=== PATIENT | male | born 1965 | race Caucasian/White ===

== ENCOUNTER 2020-06-29 13:46 | Emergency (ER) | payer OTHER ==
[~2020-06-29 13:46] MED LIST: LEVAQUIN500 MG PO; NORCO 5-325 TA1 EACH PO; ULTRACET TABLE1 EACH PO
[2020-06-29 14:43] LABS: HEMOGLOBIN 15.9 gm/dl (14.0-17.5); RED BLOOD COUNT 5.18 M/UL (4.20-5.50); WHITE BLOOD COUNT 4.4 K/UL (4.5-11.0)
[2020-06-29] MEDS ORDERED: KEFLEX CAP 500500 MG PO (19:45)
[2020-06-29] MEDS ORDERED: BACTRIM DS TAB1 EACH PO (19:45)
== END 2020-06-29 19:55 | disposition home or self-care (01) ==
LOC: ER1 13:46
PROVIDERS: Physician Assistant Medical
DX: G89.18 Other acute postprocedural pain (principal); R10.33 Periumbilical pain; Z98.890 Other specified postprocedural states
CPT/HCPCS: 80053; 81001; 83605; 85025; 87040; 87070; 87077; 87186; 87205; 96374; 96375; 96376; 99284; J2270; J2405

== ENCOUNTER 2020-08-28 19:05 | Emergency (ER) | payer OTHER ==
[~2020-08-28 19:05] MED LIST changes: +BACTRIM DS TAB1 EACH PO; +KEFLEX CAP 500500 MG PO
[2020-08-28 23:42] LABS: HEMOGLOBIN 16.7 gm/dl (14.0-17.5); RED BLOOD COUNT 5.32 M/UL (4.20-5.50); WHITE BLOOD COUNT 6.5 K/UL (4.5-11.0)
[2020-08-29] MEDS ORDERED: ZOFRAN ODT 4 MG4 MG PO (03:00)
[2020-08-29] MEDS ORDERED: BENTYL 20MG TAB20 MG PO (03:00)
== END 2020-08-29 03:12 | disposition home or self-care (01) ==
LOC: ER1 19:05
PROVIDERS: Emergency Medicine
DX: R10.32 Left lower quadrant pain (principal); L76.34 Postprocedural seroma of skin and subcutaneous tissue following other procedure; N18.9 Chronic kidney disease, unspecified
CPT/HCPCS: 80053; 81001; 83605; 83690; 83735; 85025; 96374; 96375; 99284; J2270; J2405

== ENCOUNTER 2021-02-02 15:15 | Emergency (ER) | payer BC ==
[~2021-02-02] VITALS: Ht 165.1 cm; Wt 90.7 kg
[~2021-02-02 15:15] MED LIST changes: +BENTYL 20MG TAB20 MG PO; +ZOFRAN ODT 4 MG4 MG PO
== END 2021-02-02 18:20 | disposition home or self-care (01) ==
LOC: ER1 15:15
DX: Z23 Encounter for immunization (principal); U07.1 COVID-19; I10 Essential (primary) hypertension
CPT/HCPCS: 99283; M0243

== ENCOUNTER 2021-02-09 03:11 | Emergency (ER) | payer BC ==
[~2021-02-09] VITALS: Ht 167.6 cm; Wt 90.7 kg
[2021-02-09 03:54] LABS: HEMOGLOBIN 16.1 gm/dl (14.0-17.5); RED BLOOD COUNT 5.24 M/UL (4.20-5.50); WHITE BLOOD COUNT 10.4 K/UL (4.5-11.0)
[2021-02-10 03:52] LABS: HEMOGLOBIN 15.4 gm/dl (14.0-17.5); RED BLOOD COUNT 5.03 M/UL (4.20-5.50); WHITE BLOOD COUNT 11.4 K/UL (4.5-11.0)
[2021-02-10] MEDS ORDERED: VOLTAREN EC 5050 MG PO (12:14)
[2021-02-10] MEDS ORDERED: GABAPENTIN400 MG PO (12:15)
[2021-02-10] MEDS ORDERED: LEVOTHYROXINE25 MCG PO (12:15)
[2021-02-10] MEDS ORDERED: FLOMAX 0.4 MG0.4 MG PO (12:16)
[2021-02-10] MEDS ORDERED: HYDROCODON-ACE1 EAC4 PO (16:45)
[2021-02-10] MEDS ORDERED: AUGMENTIN 875-1 EACH PO (16:45)
== END 2021-02-10 16:32 | disposition home or self-care (01) ==
LOC: ER1 03:11 → CDU 09:04 → ER1 02-10 16:32
PROVIDERS: Physician Assistant; Physician Assistant Medical
DX: L03.113 Cellulitis of right upper limb (principal); N17.9 Acute kidney failure, unspecified; K21.9 Gastro-esophageal reflux disease without esophagitis; N40.0 Benign prostatic hyperplasia without lower urinary tract symptoms; Z90.89 Acquired absence of other organs; Z90.49 Acquired absence of other specified parts of digestive tract; Z20.822 Contact with and (suspected) exposure to COVID-19
CPT/HCPCS: 73200; 80048; 80053; 82550; 82553; 83605; 83735; 83874; 84100; 84484; 85025; 85027; 85652; 86140; 87040; 96374; 96375; 96376; 99284; J1170; J1335; J2270; J2405; J2543; J3370; J7030; J7070; U0002

== ENCOUNTER 2021-10-14 18:31 | Emergency (ER) | payer BC ==
[~2021-10-14 18:31] MED LIST changes: +AUGMENTIN 875-1 EACH PO; +FLOMAX 0.4 MG0.4 MG PO; +GABAPENTIN400 MG PO; +HYDROCODON-ACE1 EAC4 PO; +LEVOTHYROXINE25 MCG PO; +VOLTAREN EC 5050 MG PO
[2021-10-14 19:31] LABS: HEMOGLOBIN 16.1 gm/dl (14.0-17.5); RED BLOOD COUNT 5.1 M/UL (4.20-5.50); WHITE BLOOD COUNT 9.6 K/UL (4.5-11.0)
== END 2021-10-15 01:00 | disposition home or self-care (01) ==
LOC: ER1 18:31
PROVIDERS: Emergency Medicine; Physician Assistant
DX: K43.9 Ventral hernia without obstruction or gangrene (principal); E87.5 Hyperkalemia; K63.89 Other specified diseases of intestine; I12.9 Hypertensive chronic kidney disease with stage 1 through stage 4 chronic kidney disease, or unspecified chronic kidney disease; N18.9 Chronic kidney disease, unspecified
CPT/HCPCS: 80048; 80053; 81001; 82550; 82553; 85025; 93005; 94644; 94760; 96374; 96375; 99284; J2270; J2405

== ENCOUNTER → 2022-01-01 | Outpatient (CLI) | payer BC ==
[~2022-01-01] MED LIST changes: -GABAPENTIN400 MG PO; +GABAPENTIN600 MG PO; +ONDANSETRON HCL4 MG PO
[2022-01-01 14:31] LABS: HEMOGLOBIN 15.7 gm/dl (14.0-17.5); RED BLOOD COUNT 5.14 M/UL (4.20-5.50); WHITE BLOOD COUNT 7.1 K/UL (4.5-11.0)
[2022-01-01 15:12] LABS: BUN/CREATININE RATIO 10 (0-10)
[2022-01-02 13:14] LABS: TESTOSTERONE, SERUM 611 ng/dL (264-916)
== END ==
LOC: LAB 14:02
PROVIDERS: Nurse Practitioner
DX: R53.83 Other fatigue (principal); D64.9 Anemia, unspecified; N18.6 End stage renal disease; E78.5 Hyperlipidemia, unspecified; R73.9 Hyperglycemia, unspecified; E29.1 Testicular hypofunction; N40.1 Benign prostatic hyperplasia with lower urinary tract symptoms
CPT/HCPCS: 36415; 80053; 80061; 83036; 83735; 84100; 84153; 84403; 84443; 85027

== ENCOUNTER → 2022-01-02 | Outpatient (CLI) | payer BC ==
[2022-01-03 08:13] LABS: HBSAG SCREEN Negative (Negative); HCV AB <0.1 (0.0-0.9); HEP A AB, IGM Negative (Negative); HEP B CORE AB, IGM Negative (Negative)
== END ==
LOC: RAD 14:32
PROVIDERS: Nurse Practitioner
DX: I42.9 Cardiomyopathy, unspecified (principal); R74.01 Elevation of levels of liver transaminase levels
CPT/HCPCS: 36415; 71046; 80074; 85610; 85730

== ENCOUNTER 2022-01-03 18:55 | Inpatient (IN) | payer BC ==
[~2022-01-03] VITALS: Ht 167.6 cm; Wt 92.1 kg
[~2022-01-03 18:55] MED LIST changes: -ONDANSETRON HCL4 MG PO
[2022-01-03 19:11] LABS: HEMOGLOBIN 16.1 gm/dl (14.0-17.5); RED BLOOD COUNT 5.21 M/UL (4.20-5.50)
[2022-01-03 19:18] LABS: WHITE BLOOD COUNT 10.9 K/UL (4.5-11.0)
[2022-01-04 07:24] LABS: RED BLOOD COUNT 4.76 M/UL (4.20-5.50); WHITE BLOOD COUNT 9.5 K/UL (4.5-11.0)
[2022-01-04] MEDS ORDERED: ONDANSETRON HCL4 MG PO (10:50)
[2022-01-05 04:06] LABS: HEMOGLOBIN 13.1 gm/dl (14.0-17.5); RED BLOOD COUNT 4.34 M/UL (4.20-5.50); WHITE BLOOD COUNT 8.7 K/UL (4.5-11.0)
--- NOTE | 2022-01-05 06:44 | NUR ---
0515: WHILE ASSISTING OTHER PT IN OTHER ROOM, THIS PT GOT OUT OF BED AND WENT TO THE BATHROOM STATING " I STINK AND NEED A SHOWER" PT ADVISED THAT THEY WERE STILL ON BEDREST PER MD ORDER AND NEEDED TO GO BACK TO BED. 0545: PT BACK TO BED, CHECKED PT R SIDE GROIN WHERE PREVIOUS SHEATH WAS, MORE SWELLING PRESENT WITH HARDNESS NOTED, BRUISING WORSENING, MD NOTIFIED (SEE NOTE)
[2022-01-06 01:15] LABS: HEMOGLOBIN 11.6 gm/dl (14.0-17.5); WHITE BLOOD COUNT 8.9 K/UL (4.5-11.0)
[2022-01-06 01:24] LABS: RED BLOOD COUNT 3.78 M/UL (4.20-5.50)
--- NOTE | 2022-01-06 20:12 | NUR ---
CALLED TO ROOM REQUESTING A"CONVERSATION" AT THIS TIME HE WAS INSISTENT TO GET OUT OF BED TO VOID DESPITE ADVICE TO REMAIN ON BEDREST. SHAKING UNCONTROLLABLY AND EXTREMELY ANXIOUS. ONCE UP HE WAS INSISTENT TO GO TO RESTROOM. ASSIST TO RESTROOM AND THEN SAT UP IN CHAIR. STATES HE WAS FEELING BETTER AT THAT POINT.
--- NOTE | 2022-01-06 20:38 | NUR ---
CALLED BACK TO ROOM . VERY UPSET. DEMANDING DR CHERRY TO BE CALLED. DR NAGY LOCK EXPERT. HE STATED HE THINKS MAYBE HE SHOULD BE TRANSFERRED TO [place] WHERE HE COULD RECEIVE BETTER QUALITY TREATMENT. ALL QUESTIONS AND CONCERNS ADDRESSED. DECLINED SPEAKING WITH DR NAGY AT THIS TIME. WILL CONTINUE TO ADDRESS ISSUES NEEDED.
[2022-01-07 04:56] LABS: HEMOGLOBIN 10.9 gm/dl (14.0-17.5); RED BLOOD COUNT 3.58 M/UL (4.20-5.50); WHITE BLOOD COUNT 7.4 K/UL (4.5-11.0)
[2022-01-08 04:17] LABS: RED BLOOD COUNT 3.69 M/UL (4.20-5.50); WHITE BLOOD COUNT 5.9 K/UL (4.5-11.0)
--- NOTE | 2022-01-08 17:41 | NUR ---
PT CALLED OUT STATES, " I CANNOT BREATHE I FEEL LIKE MY LUNGS ARE FILLED UP WITH FLUID AND IM SMOTHERING. " OXYGEN CHECKED PTS 02SAT IS 99% ON 2LNC. NOTIFIED DR MARTIN. ORDERS PLACED.
[2022-01-09 01:49] LABS: HEMOGLOBIN 10.7 gm/dl (14.0-17.5); RED BLOOD COUNT 3.58 M/UL (4.20-5.50); WHITE BLOOD COUNT 5.5 K/UL (4.5-11.0)
[2022-01-09] MEDS ORDERED: ASPIRIN EC81 MG PO (11:45)
[2022-01-09] MEDS ORDERED: ISOSORBIDE MONO60 MG PO (11:45)
[2022-01-09] MEDS ORDERED: BRILINTA 90 MG90 MG PO (11:45)
[2022-01-09] MEDS ORDERED: ATORVASTATIN CA20 MG PO (11:45)
[2022-01-09] MEDS ORDERED: CARVEDILOL25 MG PO (11:45)
[2022-01-12] MEDS ORDERED: ATORVASTATIN CA20 MG PO (10:28)
[2022-01-12] MEDS ORDERED: HYDRALAZINE HCL25 MG PO (10:29)
[2022-01-13] MEDS ORDERED: ISOSORBIDE MON120 MG PO (13:15)
[2022-01-13] MEDS ORDERED: LIPITOR40 MG PO (13:15)
[2022-01-13] MEDS ORDERED: NITROGLYCERIN0.4 MG SL (13:15)
[2022-01-13] MEDS ORDERED: EFFIENT10 MG PO (13:15)
[2022-01-13] MEDS ORDERED: CARVEDILOL12.5 MG PO (13:15)
== END 2022-01-09 13:13 | disposition home or self-care (01) | DRG 246 ==
LOC: ER1 18:55 → CCU 19:08 → CDU 19:08 → CCU 22:47 → PROG CARE 01-08 12:22
PROVIDERS: Internal Medicine; Internal Medicine Cardiovascular Disease; Internal Medicine Nephrology; Student in an Organized Health Care Education/Training Program; ADMIT Internal Medicine
PROC: 027036Z Dilation of Coronary Artery, One Artery with Three Drug-eluting Intraluminal Devices, Percutaneous Approach (ICD-10-PCS; principal; 2022-01-03)
PROC: B241ZZ3 Ultrasonography of Multiple Coronary Arteries, Intravascular (ICD-10-PCS; 2022-01-03)
PROC: 4A023N7 Measurement of Cardiac Sampling and Pressure, Left Heart, Percutaneous Approach (ICD-10-PCS; 2022-01-03)
PROC: B2111ZZ Fluoroscopy of Multiple Coronary Arteries using Low Osmolar Contrast (ICD-10-PCS; 2022-01-03)
DX: I21.19 ST elevation (STEMI) myocardial infarction involving other coronary artery of inferior wall (principal); N17.0 Acute kidney failure with tubular necrosis; D62 Acute posthemorrhagic anemia; Z20.822 Contact with and (suspected) exposure to COVID-19; N18.4 Chronic kidney disease, stage 4 (severe); I13.0 Hypertensive heart and chronic kidney disease with heart failure and stage 1 through stage 4 chronic kidney disease, or unspecified chronic kidney disease; I50.32 Chronic diastolic (congestive) heart failure; I42.8 Other cardiomyopathies; I97.610 Postprocedural hemorrhage of a circulatory system organ or structure following a cardiac catheterization; N40.0 Benign prostatic hyperplasia without lower urinary tract symptoms; E87.5 Hyperkalemia; R74.01 Elevation of levels of liver transaminase levels; E78.5 Hyperlipidemia, unspecified; E83.42 Hypomagnesemia; I16.0 Hypertensive urgency; E03.9 Hypothyroidism, unspecified; Z96.643 Presence of artificial hip joint, bilateral; Z96.698 Presence of other orthopedic joint implants; Z79.01 Long term (current) use of anticoagulants; Z79.82 Long term (current) use of aspirin; Z82.5 Family history of asthma and other chronic lower respiratory diseases; Z90.49 Acquired absence of other specified parts of digestive tract; Z95.5 Presence of coronary angioplasty implant and graft; Y83.8 Other surgical procedures as the cause of abnormal reaction of the patient, or of later complication, without mention of misadventure at the time of the procedure
CPT/HCPCS: ECHO; 36415; 36600; 71045; 80048; 80053; 80061; 80307; 81001; 82043; 82550; 82553; 82570; 82803; 83735; 83880; 84100; 84132; 84156; 84439; 84443; 84484; 85025; 85027; 85347; 85610; 85730; 93005; 93306; 93926; 94640; 94664; 94760; 99152; 99153; 99285; C1725; C1769; C1874; C1887; C1894; C9113; J0360; J0461; J1170; J1644; J2060; J2250; J2270; J2370; J2405; J3010; J3246; J3475; J7040; P9047; Q0177; Q9965